=== PATIENT | female | born 2000 | race Caucasian/White ===

== ENCOUNTER 2023-06-09 20:49 | Emergency (ER) | payer OTHER ==
[~2023-06-09] VITALS: Ht 157.5 cm; Wt 73.0 kg
[2023-06-09 21:16] VITALS: O2SAT 100
[2023-06-09 21:40] LABS: CLARITY URINE CLEAR (CLEAR); COLOR URINE YELLOW (YELLOW); GLUCOSE URINE NEGATIVE (NEGATIVE); KETONES URINE NEGATIVE (NEGATIVE); LEUKOCYTE ESTERASE URINE NEGATIVE (NEGATIVE); NITRITE URINE NEGATIVE (NEGATIVE); OCCULT BLOOD URINE NEGATIVE (NEGATIVE); PH URINE 5.5 (4.5-8.0); PROTEIN URINE NEGATIVE (NEGATIVE); SPECIFIC GRAVITY URINE 1.012 (1.005-1.030); UROBILINOGEN URINE 0.2 E.U./dL (0.2-1.0)
[2023-06-09] MEDS ORDERED: IBUP-2028 MT (22:07)
[2023-06-09] MEDS ORDERED: CEPH500C2 MT (22:07)
[2023-06-09] MEDS ORDERED: KETOROLAC 60MG/2ML VIAL IM NR (22:10)
[2023-06-09] MEDS ORDERED: CYCLOBENZAPRINE 10MG TABLET PO NR (22:10)
[2023-06-09 23:20] VITALS: BP 121/82
[2023-06-10] MEDS ORDERED: NAPR-681 PO (00:09)
[2023-06-10 00:36] VITALS: PULSE 77; RESP 16; TEMP 98.2
== END 2023-06-10 00:37 | disposition home or self-care (01) ==
LOC: ER 20:49
DX: G89.29 Other chronic pain (principal); M41.9 Scoliosis, unspecified; M54.50 Low back pain, unspecified
CPT/HCPCS: 99284; 71046; 81003; 81025; 72100; 96372; J1885